=== PATIENT | female | born 1950 | race Caucasian/White ===

== ENCOUNTER → 2016-08-25 | Outpatient (CLI) | payer MEDICARE ==
[~2016-08-25] MED LIST: AFLEXA340 MG; ALPHA LIPOIC300 MG PO; AMARYL2 MG PO; ASPIRIN CHILDRE81 MG PO; ASPIRIN81 M1 PO; ATIVAN0.5 MG PO; ATOXIMETIN-B1 CAP PO; AUGMENTIN 875875 MG PO; CALCIUM & MAGNE1 CAP PO; CALCIUM1 CAP; CHOLESTEROL MA600 MG PO; COREG12.5 MG PO; COREG25 MG PO; HYDROCODONE BIT1 T11 PO; LEVOTHYROXIN0.125 MG PO; LOSARTAN POTASS1 TA2 PO; METFORMIN500 MG PO; NORCO 5-325 TA1 EACH PO; NORVASC10 MG PO; OMEGA-3 FISH1200 M1 PO; OMEGA-3 FISH1200 MG PO; PLAVIX75 MG PO; SPIRIVA18 MCG PO; SYMBICORT1 AE1 INH; [UNRECOGNIZED DRUG - OTHER]
[2016-08-25 14:46] LABS: ALBUMIN 3.7 gm/dl (3.1-4.5); ALKALINE PHOSPHATASE 105 U/L (45-117); BILIRUBIN, DIRECT < 0.1 mg/dL (0.0-0.2); BILIRUBIN, TOTAL 0.4 mg/dl (0.2-1.0); BUN 34 mg/dl (7-24); CARBON DIOXIDE 26 mmol/L (21-32); CHLORIDE 106 mmol/L (98-107); EST GLOM FILT AFRICAN AMERICAN 34 ml/min; GLUCOSE 156 mg/dL (65-99); POTASSIUM 4.1 mmol/L (3.5-5.1); SGOT/AST 17 IU/L (3-35); SGPT/ALT 21 U/L (12-78); SODIUM 141 mmol/L (136-145); TOTAL PROTEIN 7.3 gm/dL (6.4-8.2)
[2016-08-25 15:23] LABS: BASO # 0.1 10*3/uL (0.0-0.1); EOS # 0.4 10*3/uL (0.0-0.4); HEMATOCRIT 41.7 % (37.0-47.0); HEMOGLOBIN 13.4 g/dl (12.0-16.0); LYMPH # 1.2 10*3/uL (1.3-4.4); LYMPH % 22.5 % (27.0-41.0); MEAN CELL VOLUME 94.3 fl (81.0-99.0); MEAN CORPUSCULAR HGB 30.3 pg (27.0-31.0); MEAN CORPUSCULAR HGB CONC 32.1 g/dl (33.0-37.0); MEAN PLATELET VOLUME 11.2 fl (9.6-12.3); MONO # 0.5 10*3/uL (0.1-1.0); MONO % 10.6 % (3.0-9.0); NEUT # 2.9 10*3/uL (2.3-7.9); NEUT % 57.7 % (47.0-73.0); PLATELET COUNT AUTOMATED 206 10*3/uL (130-400); RED BLOOD COUNT 4.42 10*6/uL (4.10-5.10); RED CELL DISTRI WIDTH 12.7 % (0-14.5); WHITE BLOOD COUNT 5.1 10*3/uL (4.8-10.8)
== END | disposition home or self-care (01) ==
LOC: LAB 12:22 → US 12:30
PROVIDERS: Family Medicine
DX: I73.9 Peripheral vascular disease, unspecified (principal); N28.9 Disorder of kidney and ureter, unspecified; J98.4 Other disorders of lung; E11.9 Type 2 diabetes mellitus without complications; I10 Essential (primary) hypertension; E55.9 Vitamin D deficiency, unspecified

== ENCOUNTER → 2016-10-24 | Outpatient (CLI) | payer MEDICARE ==
[2016-10-24 13:44] LABS: BASO # 0.1 10*3/uL (0.0-0.1); BASO % 1.3 % (0.0-1.0); EOS # 0.4 10*3/uL (0.0-0.4); EOS % 6.8 % (1.0-4.0); HEMATOCRIT 43.8 % (37.0-47.0); HEMOGLOBIN 14.5 g/dl (12.0-16.0); LYMPH # 1.3 10*3/uL (1.3-4.4); LYMPH % 21.1 % (27.0-41.0); MEAN CELL VOLUME 93.6 fl (81.0-99.0); MEAN CORPUSCULAR HGB CONC 33.1 g/dl (33.0-37.0); MEAN PLATELET VOLUME 10.8 fl (9.6-12.3); MONO # 0.5 10*3/uL (0.1-1.0); MONO % 8.6 % (3.0-9.0); NEUT # 3.8 10*3/uL (2.3-7.9); NEUT % 61.9 % (47.0-73.0); PLATELET COUNT AUTOMATED 221 10*3/uL (130-400); RED BLOOD COUNT 4.68 10*6/uL (4.10-5.10); RED CELL DISTRI WIDTH 13.3 % (0-14.5); WHITE BLOOD COUNT 6.1 10*3/uL (4.8-10.8)
[2016-10-24 14:06] LABS: MAGNESIUM 2.2 mg/dL (1.5-2.1); PHOSPHOROUS 2.9 mg/dL (2.5-4.9); POTASSIUM 3.9 mmol/L (3.5-5.1)
[2016-10-24 14:18] LABS: HEMOGLOBIN A1c 6.6 % (4.8-5.6)
[2016-10-24 14:42] LABS: PTH INTACT 36.4 pg/mL (14.0-72.0); VITAMIN D, 25-HYDROXY 36.9 ng/mL (30-100)
[2016-10-25 18:24] LABS: URINE TP/CRE RATIO 0.1 (<0.21)
[2016-10-25 18:30] LABS: BILIRUBIN NEGATIVE (NEGATIVE); BLOOD NEGATIVE (NEGATIVE); CLARITY SL CLOUDY (CLEAR); COLOR YELLOW (YELLOW); GLUCOSE NEGATIVE (NEGATIVE); KETONE NEGATIVE (NEGATIVE); LEUKO ESTERASE TRACE (NEGATIVE); NITRITE NEGATIVE (NEGATIVE); PH 5.5 (5.0-9.0); PROTEIN NEGATIVE (NEGATIVE); SPECIFIC GRAVITY 1.015 (1.005-1.030); UROBILINOGEN 0.2 E.U./dl (0.2-1.0)
[2016-10-25 18:33] LABS: BACTERIA 3+; URINE REFLEX COMMENT YES (NO)
[2016-10-27 14:06] LABS: ALBUMIN, URINE RANDOM 25.4 % (.); PROTEIN,TOTAL - URINE RANDOM 20.9 mg/dL (Not Estab.)
[2016-10-27 14:07] LABS: ALPHA-1-GLOBULIN, URINE 0.7 % (.); GAMMA GLOBULIN, URINE 43.7 % (.); M-SPIKE % 17.4 % (Not Observed)
== END | disposition home or self-care (01) ==
LOC: LAB 12:49
PROVIDERS: Internal Medicine Nephrology
DX: E11.22 Type 2 diabetes mellitus with diabetic chronic kidney disease (principal); N18.4 Chronic kidney disease, stage 4 (severe); E83.52 Hypercalcemia; Z79.899 Other long term (current) drug therapy

== ENCOUNTER → 2016-10-31 | Outpatient (CLI) | payer MEDICARE | END | disposition home or self-care (01) | LOC: US 03:26 | DX: N18.4 Chronic kidney disease, stage 4 (severe) (principal) ==

== ENCOUNTER → 2017-03-05 | Outpatient (CLI) | payer MEDICARE ==
[2017-03-05 14:51] LABS: BASO # 0.1 10*3/uL (0.0-0.1); EOS # 0.3 10*3/uL (0.0-0.4); EOS % 5.2 % (1.0-4.0); HEMATOCRIT 44.5 % (37.0-47.0); HEMOGLOBIN 14.5 g/dl (12.0-16.0); LYMPH # 1.2 10*3/uL (1.3-4.4); LYMPH % 23.9 % (27.0-41.0); MEAN CELL VOLUME 94.9 fl (81.0-99.0); MEAN CORPUSCULAR HGB 30.9 pg (27.0-31.0); MEAN CORPUSCULAR HGB CONC 32.6 g/dl (33.0-37.0); MEAN PLATELET VOLUME 10.4 fl (9.6-12.3); MONO # 0.4 10*3/uL (0.1-1.0); MONO % 8.2 % (3.0-9.0); NEUT # 3.1 10*3/uL (2.3-7.9); NEUT % 61.5 % (47.0-73.0); PLATELET COUNT AUTOMATED 204 10*3/uL (130-400); RED BLOOD COUNT 4.69 10*6/uL (4.10-5.10); RED CELL DISTRI WIDTH 12.3 % (0-14.5)
[2017-03-05 15:18] LABS: ALBUMIN 3.6 gm/dl (3.1-4.5); CREATININE 1.67 mg/dL (0.55-1.02); PHOSPHOROUS 2.7 mg/dL (2.5-4.9); POTASSIUM 4.2 mmol/L (3.5-5.1)
[2017-03-05 15:33] LABS: BILIRUBIN NEGATIVE (NEGATIVE); BLOOD NEGATIVE (NEGATIVE); CLARITY SL CLOUDY (CLEAR); COLOR YELLOW (YELLOW); GLUCOSE NEGATIVE (NEGATIVE); KETONE NEGATIVE (NEGATIVE); LEUKO ESTERASE NEGATIVE (NEGATIVE); NITRITE NEGATIVE (NEGATIVE); UROBILINOGEN 0.2 E.U./dl (0.2-1.0)
[2017-03-05 15:40] LABS: BACTERIA 4+
[2017-03-06 05:08] LABS: TOTAL PROTEIN, SERUM 6.8 g/dL (6.0-8.5)
[2017-03-06 15:09] LABS: IMMUNOFIXATION RESULT, SERUM Comment: (.)
[2017-03-06 16:11] LABS: A/G RATIO 1.1 (0.7-1.7); ALBUMIN 3.6 g/dL (2.9-4.4); ALPHA-1-GLOBULIN 0.3 g/dL (0.0-0.4); ALPHA-2-GLOBULIN 0.8 g/dL (0.4-1.0); BETA GLOBULIN 1.1 g/dL (0.7-1.3); GLOBULIN, TOTAL 3.2 g/dL (2.2-3.9); M-SPIKE Comment: g/dL (Not Observed)
== END | disposition home or self-care (01) ==
LOC: LAB 00:10 → US 15:00
PROVIDERS: Internal Medicine Nephrology
DX: E11.22 Type 2 diabetes mellitus with diabetic chronic kidney disease (principal); N18.4 Chronic kidney disease, stage 4 (severe); N28.1 Cyst of kidney, acquired; E83.52 Hypercalcemia; Z79.899 Other long term (current) drug therapy

== ENCOUNTER → 2018-03-25 | Outpatient (CLI) | payer MEDICARE ==
[2018-03-25 11:55] LABS: BASO # 0.1 10*3/uL (0.0-0.1); BASO % 0.9 % (0.0-1.0); EOS # 0.4 10*3/uL (0.0-0.4); EOS % 6.6 % (1.0-4.0); HEMOGLOBIN 14.6 g/dl (12.0-16.0); MEAN CELL VOLUME 97.9 fl (81.0-99.0); MEAN CORPUSCULAR HGB 31.1 pg (27.0-31.0); MEAN CORPUSCULAR HGB CONC 31.7 g/dl (33.0-37.0); MEAN PLATELET VOLUME 10.2 fl (9.6-12.3); MONO # 0.6 10*3/uL (0.1-1.0); MONO % 8.8 % (3.0-9.0); NEUT # 4.3 10*3/uL (2.3-7.9); NEUT % 67.5 % (47.0-73.0); PLATELET COUNT AUTOMATED 214 10*3/uL (130-400); RED CELL DISTRI WIDTH 12.3 % (0-14.5); WHITE BLOOD COUNT 6.4 10*3/uL (4.8-10.8)
[2018-03-26 05:05] LABS: TOTAL PROTEIN, SERUM 7.2 g/dL (6.0-8.5)
[2018-03-26 15:06] LABS: A/G RATIO 0.9 (0.7-1.7); ALBUMIN 3.4 g/dL (2.9-4.4); ALPHA-1-GLOBULIN 0.3 g/dL (0.0-0.4); ALPHA-2-GLOBULIN 0.9 g/dL (0.4-1.0); BETA GLOBULIN 1.3 g/dL (0.7-1.3); FREE KAPPA LIGHT CHAINS 107.6 mg/L (3.3-19.4); FREE LAMBDA LIGHT CHAINS 48.8 mg/L (5.7-26.3); GAMMA GLOBULIN 1.3 g/dL (0.4-1.8); GLOBULIN, TOTAL 3.8 g/dL (2.2-3.9); KAPPA/LAMBDA RATIO 2.2 (0.26-1.65); M-SPIKE 0.4 g/dL (Not Observed)
== END | disposition home or self-care (01) ==
PROVIDERS: Internal Medicine Hematology & Oncology
DX: D47.2 Monoclonal gammopathy (principal)

== ENCOUNTER → 2018-05-11 | Outpatient (CLI) | payer MEDICARE ==
[2018-05-11 11:22] LABS: BILIRUBIN NEGATIVE (NEGATIVE); BLOOD NEGATIVE (NEGATIVE); CLARITY CLOUDY (CLEAR); COLOR YELLOW (YELLOW); GLUCOSE NEGATIVE (NEGATIVE); KETONE NEGATIVE (NEGATIVE); LEUKO ESTERASE 1+ (NEGATIVE); NITRITE NEGATIVE (NEGATIVE); UROBILINOGEN 0.2 E.U./dl (0.2-1.0)
[2018-05-11 11:44] LABS: BASO # 0.1 10*3/uL (0.0-0.1); BASO % 1.1 % (0.0-1.0); EOS # 0.4 10*3/uL (0.0-0.4); EOS % 6.9 % (1.0-4.0); HEMATOCRIT 45.9 % (37.0-47.0); HEMOGLOBIN 14.7 g/dl (12.0-16.0); LYMPH # 1.2 10*3/uL (1.3-4.4); LYMPH % 18.7 % (27.0-41.0); MEAN CELL VOLUME 97.7 fl (81.0-99.0); MEAN CORPUSCULAR HGB 31.3 pg (27.0-31.0); MEAN PLATELET VOLUME 10.6 fl (9.6-12.3); MONO # 0.6 10*3/uL (0.1-1.0); MONO % 9.5 % (3.0-9.0); NEUT # 4.1 10*3/uL (2.3-7.9); NEUT % 63.5 % (47.0-73.0); PLATELET COUNT AUTOMATED 212 10*3/uL (130-400); RED CELL DISTRI WIDTH 12.6 % (0-14.5); WHITE BLOOD COUNT 6.4 10*3/uL (4.8-10.8)
[2018-05-11 11:49] LABS: BACTERIA 4+; WBC TNTC wbc/hpf (0-5)
[2018-05-11 11:58] LABS: ALBUMIN 3.7 gm/dl (3.1-4.5); CREATININE 1.91 mg/dL (0.55-1.02); PHOSPHOROUS 2.7 mg/dL (2.5-4.9); POTASSIUM 4.5 mmol/L (3.5-5.1)
[2018-05-11 12:03] LABS: ALBUMIN 3.7 gm/dl (3.1-4.5); BILIRUBIN, DIRECT 0.1 mg/dL (0.0-0.2); TOTAL PROTEIN 7.8 gm/dL (6.4-8.2)
[2018-05-11 12:11] LABS: THYROID STIM HORMONE (HS) 2.24 uIU/ml (0.358-4.75)
[2018-05-12 16:09] LABS: FREE LAMBDA LIGHT CHAINS 44.8 mg/L (5.7-26.3); KAPPA/LAMBDA RATIO 2.68 (0.26-1.65)
[2018-05-12 17:11] LABS: A/G RATIO 1.1 (0.7-1.7); ALBUMIN 3.6 g/dL (2.9-4.4); ALPHA-1-GLOBULIN 0.3 g/dL (0.0-0.4); ALPHA-2-GLOBULIN 0.9 g/dL (0.4-1.0); BETA GLOBULIN 1.1 g/dL (0.7-1.3); GAMMA GLOBULIN 1.2 g/dL (0.4-1.8); GLOBULIN, TOTAL 3.4 g/dL (2.2-3.9); M-SPIKE 0.4 g/dL (Not Observed)
== END | disposition home or self-care (01) ==
LOC: LAB 10:42
PROVIDERS: Family Medicine; Internal Medicine Nephrology
DX: E11.22 Type 2 diabetes mellitus with diabetic chronic kidney disease (principal); N18.3 Chronic kidney disease, stage 3 (moderate); E83.52 Hypercalcemia; D47.2 Monoclonal gammopathy; Z79.899 Other long term (current) drug therapy

== ENCOUNTER 2019-01-24 15:36 | Inpatient (IN) | payer MEDICARE ==
[~2019-01-24] VITALS: Ht 165.1 cm; Wt 141.1 kg
[2019-01-24] VITALS (11 sets, daily range): BP systolic 130–165; BP diastolic 42–77
[2019-01-24 15:53] LABS: BASO # 0.1 10*3/uL (0.0-0.1); BASO % 1.2 % (0.0-1.0); EOS # 0.4 10*3/uL (0.0-0.4); HEMOGLOBIN 14.1 g/dl (12.0-16.0); LYMPH % 17.6 % (27.0-41.0); MEAN CELL VOLUME 98.3 fl (81.0-99.0); MEAN CORPUSCULAR HGB 30.8 pg (27.0-31.0); MEAN CORPUSCULAR HGB CONC 31.3 g/dl (33.0-37.0); MEAN PLATELET VOLUME 10.3 fl (9.6-12.3); MONO # 0.6 10*3/uL (0.1-1.0); MONO % 9.8 % (3.0-9.0); NEUT # 3.7 10*3/uL (2.3-7.9); NEUT % 64.1 % (47.0-73.0); PLATELET COUNT AUTOMATED 190 10*3/uL (130-400); RED BLOOD COUNT 4.58 10*6/uL (4.10-5.10); RED CELL DISTRI WIDTH 12.3 % (0-14.5); WHITE BLOOD COUNT 5.7 10*3/uL (4.8-10.8)
[2019-01-24 16:05] LABS: ACT PARTIAL THROMBO TIME 26.8 SECONDS (20.0-32.1)
[2019-01-24 16:10] LABS: ALBUMIN 3.5 gm/dl (3.1-4.5); CREATININE 1.81 mg/dL (0.55-1.02); POTASSIUM 4.6 mmol/L (3.5-5.1); TOTAL PROTEIN 7.1 gm/dL (6.4-8.2)
[2019-01-24 16:17] LABS: TROPONIN I 0.016 ng/ml (<0.045)
--- NOTE | 2019-01-24 16:25 | NUR ---
SITTING UP IN BED USING CELL PHONE. PLEASANT, NO DISTRESS NOTED.
--- NOTE | 2019-01-24 17:42 | NUR ---
LYING I BED WATCHING TV, APPEARS RELAXED. NO VOICED COMPLAINTS.
--- NOTE | 2019-01-24 19:18 | NUR ---
CRITICAL LAB TROP 0.097.
--- NOTE | 2019-01-24 19:19 | NUR ---
STALIN RN STATES ROOM IS READY AT THIS TIME BUT NEEDS 15 MINUTES TO GET THE REST OF REPORT.
--- NOTE | 2019-01-24 19:45 | NUR ---
A 68, admitted to , under the services of ANNEMARIE Tran DO with a diagnosis of CHEST PAIN, PNEUMONIA. Chief complaint is CHEST PAIN. Patient arrived via bed from ER. Monitor applied. Initial assessment completed. Vital signs taken and recorded. ANNEMARIE TRAN DO notified of admission to the unit. Orders received. See assessment for past medical history, medications and allergies. Patient and/or family oriented to unit. [address] visitation policy reviewed. Clothing/patient valuable form completed. STALIN CONNELLY
[2019-01-24] MEDS ORDERED: NORVASC5 MG PO (20:06)
--- NOTE | 2019-01-24 22:10 | NUR ---
DR WALLS NOTIFIED OF CRITICAL TROPONIN
--- NOTE | 2019-01-24 22:14 | NUR ---
CALL CALLED TO CARDIOLOGY ANSWERING SERVICE
--- NOTE | 2019-01-24 22:21 | NUR ---
SPOKE WITH DR SHINE REGARDING NEW CONSULT. NO NEW ORDERS
--- NOTE | 2019-01-24 23:53 | NUR ---
HEPARIN BOLUS/DRIP INITIATED PER ORDER.
[2019-01-25] VITALS: BP 134/76
[2019-01-25 06:11] LABS: BASO # 0.1 10*3/uL (0.0-0.1); BASO % 0.7 % (0.0-1.0); EOS # 0.5 10*3/uL (0.0-0.4); EOS % 6.5 % (1.0-4.0); HEMATOCRIT 41.7 % (37.0-47.0); HEMOGLOBIN 13.2 g/dl (12.0-16.0); LYMPH # 1.7 10*3/uL (1.3-4.4); MEAN CORPUSCULAR HGB 30.7 pg (27.0-31.0); MEAN CORPUSCULAR HGB CONC 31.7 g/dl (33.0-37.0); MEAN PLATELET VOLUME 10.4 fl (9.6-12.3); MONO # 0.8 10*3/uL (0.1-1.0); MONO % 11.8 % (3.0-9.0); NEUT # 3.9 10*3/uL (2.3-7.9); NEUT % 56.6 % (47.0-73.0); PLATELET COUNT AUTOMATED 176 10*3/uL (130-400); RED CELL DISTRI WIDTH 12.5 % (0-14.5)
[2019-01-25 06:15] LABS: ALBUMIN 2.9 gm/dl (3.1-4.5); CREATININE 1.68 mg/dL (0.55-1.02); PHOSPHOROUS 3.6 mg/dL (2.5-4.9); POTASSIUM 4.3 mmol/L (3.5-5.1); TOTAL PROTEIN 6.3 gm/dL (6.4-8.2)
[2019-01-25 06:16] LABS: FREE T4 1.28 ng/dl (0.76-1.46)
[2019-01-25 06:20] LABS: THYROID STIM HORMONE (HS) 2.54 uIU/ml (0.358-4.75)
[2019-01-25 06:23] LABS: TROPONIN I 2.28 ng/ml (<0.045)
--- NOTE | 2019-01-25 06:29 | NUR ---
CRITICAL TROPONIN CALLED TO DR WALLS AND CARDIOLOGY ANSWERING SERVICE. AWAITING CALL BACK.
[2019-01-25 06:45] LABS: INTERNATIONAL NORM RATIO 1.1 (2.0-3.5)
[2019-01-25 07:48] LABS: VITAMIN D, 25-HYDROXY 27.5 ng/mL (30-100)
[2019-01-25 08:00] VITALS: BP 130/58
--- NOTE | 2019-01-25 08:04 | NUR ---
HEPARIN DRIP STOPPED PER POLICY, NOTIFIED OF CRITICAL APTT
--- NOTE | 2019-01-25 09:00 | NUR ---
[employer] Worker in to talk to patient. Patient states lives at home with . There are few steps in the home. Physician: jarvis Pharmacy: [facility] health services: none Patient's level of ADLs: MINIMAL ASSIST Patient has working utilities: all working DME: cane Follow-up physician's appointment after d/c: will be made by hospitalist nurse director upon discharge Does patient want to access PORTAL?: no Discharge plan discussed with patient, she lives at home with , she uses a cane for ambulation she states she will return to home when medically stable, case management will follow. FRANCOIS VERMA
--- NOTE | 2019-01-25 09:21 | NUR ---
SPEECH PATHOLOGY Orders for swallowing evaluation received and chart review completed. Patient is currently NPO as she is scheduled for testing. Will complete evaluation at a later time. Thank you for this referral. AMY FORMAN MS [facility]ILIT[facility] MANAGER
[2019-01-25 12:00] VITALS: BP 104/48
--- NOTE | 2019-01-25 13:46 | NUR ---
SPEECH PATHOLOGY Clinical swallowing evaluation completed as per orders to rule out aspiration due to pneumonia. Further history includes CKD, COPD, HTN, NIDDM, NSTEMI and cardiac stent X2. Patient receives a regular diet and thin liquid. She was alert, oriented and cooperative for assessment and denied any chewing or swallowing difficulty. She was assessed during lunchtime meal with a variety of food items as well as thin liquid. Patient displayed oral and pharyngeal swallowing skills WNL with all items consumed. Recommend she remain on present diet. No follow up treatment is warranted. Modified barium swallow is not indicated at this time due to normal swallowing skills. Results and verna. were shared with patient and her nurse and they verbalized understanding. Refer to report in [facility] for further information. Thank you for this referral. AMY FORMAN MS[facility]-HELPDES[facility] ADMINISTRATOR
--- NOTE | 2019-01-25 13:50 | NUR ---
Patient not available for Occupational Therapy evaluation as she is eating lunch. Deborah Flores OTR/l
[2019-01-25] MEDS ORDERED: DOXYCYCLINE100 M3 PO (14:13)
[2019-01-25] MEDS ORDERED: ASPIRIN ADULT L81 M2 PO (14:13)
--- NOTE | 2019-01-25 15:15 | NUR ---
Occupational Therapy offered this date. Patient reports that she is going for a heart cath tomorrow morning at another facility. She also reports she uses a wh walker and a scooter at home. She did not feel she needed any OT at this time after OT explained to her. Discharge OT referral. Deborah Flores OTR/[place]
[2019-01-25 16:00] VITALS: BP 130/60
--- NOTE | 2019-01-25 16:40 | NUR ---
NOTIFIED OF CRITICAL APTT, HEPARIN STOPPED PER POLICY, BRITTANY AT [facility] EMERGENCY DEPARTMENT NOTIFIED THAT HEPERAIN WAS STOPPED AT 1640
--- NOTE | 2019-01-25 17:14 | NUR ---
PT TRANSFERRED TO [facility]
== END 2019-01-25 17:14 | disposition short-term general hospital (02) | DRG 280 ==
LOC: ED 15:36 → 4E 18:04 → EDHOLD 18:04 → 4E 18:32
PROVIDERS: Emergency Medicine; Hospitalist; Student in an Organized Health Care Education/Training Program; ADMIT Family Medicine
DX: I21.4 Non-ST elevation (NSTEMI) myocardial infarction (principal); I26.99 Other pulmonary embolism without acute cor pulmonale; J18.1 Lobar pneumonia, unspecified organism; N18.4 Chronic kidney disease, stage 4 (severe); S26.90XA Unspecified injury of heart, unspecified with or without hemopericardium, initial encounter; N17.9 Acute kidney failure, unspecified; Z68.43 Body mass index [BMI] 50.0-59.9, adult; M94.0 Chondrocostal junction syndrome [Tietze]; J45.909 Unspecified asthma, uncomplicated; I25.10 Atherosclerotic heart disease of native coronary artery without angina pectoris; E03.9 Hypothyroidism, unspecified; I12.9 Hypertensive chronic kidney disease with stage 1 through stage 4 chronic kidney disease, or unspecified chronic kidney disease; E66.01 Morbid (severe) obesity due to excess calories; E83.41 Hypermagnesemia; R79.89 Other specified abnormal findings of blood chemistry; J41.0 Simple chronic bronchitis; E11.65 Type 2 diabetes mellitus with hyperglycemia; E11.22 Type 2 diabetes mellitus with diabetic chronic kidney disease; Z88.8 Allergy status to other drugs, medicaments and biological substances; Z79.899 Other long term (current) drug therapy; Z90.710 Acquired absence of both cervix and uterus; Z95.5 Presence of coronary angioplasty implant and graft; Z83.3 Family history of diabetes mellitus; Z90.49 Acquired absence of other specified parts of digestive tract; Z82.49 Family history of ischemic heart disease and other diseases of the circulatory system; Z80.59 Family history of malignant neoplasm of other urinary tract organ; X58.XXXA Exposure to other specified factors, initial encounter; Y93.89 Activity, other specified; Y92.89 Other specified places as the place of occurrence of the external cause; Y99.8 Other external cause status

== ENCOUNTER → 2019-02-26 | Outpatient (CLI) | payer MEDICARE ==
[~2019-02-26] MED LIST changes: +ASPIRIN ADULT L81 M2 PO; +DOXYCYCLINE100 M3 PO; +NORVASC5 MG PO
[2019-02-26 13:01] LABS: BASO # 0.1 10*3/uL (0.0-0.1); BASO % 1.3 % (0.0-1.0); EOS # 0.4 10*3/uL (0.0-0.4); EOS % 7.7 % (1.0-4.0); HEMATOCRIT 44.3 % (37.0-47.0); HEMOGLOBIN 13.9 g/dl (12.0-16.0); LYMPH % 21.2 % (27.0-41.0); MEAN CORPUSCULAR HGB 30.8 pg (27.0-31.0); MEAN CORPUSCULAR HGB CONC 31.4 g/dl (33.0-37.0); MEAN PLATELET VOLUME 11.1 fl (9.6-12.3); MONO # 0.5 10*3/uL (0.1-1.0); MONO % 9.6 % (3.0-9.0); NEUT # 2.8 10*3/uL (2.3-7.9); PLATELET COUNT AUTOMATED 176 10*3/uL (130-400); RED BLOOD COUNT 4.52 10*6/uL (4.10-5.10); RED CELL DISTRI WIDTH 12.9 % (0-14.5); WHITE BLOOD COUNT 4.7 10*3/uL (4.8-10.8)
[2019-02-26 13:40] LABS: ALBUMIN 3.5 gm/dl (3.1-4.5); BILIRUBIN, DIRECT 0.1 mg/dL (0.0-0.2); POTASSIUM 4.1 mmol/L (3.5-5.1); TOTAL PROTEIN 7.3 gm/dL (6.4-8.2)
[2019-02-26 13:47] LABS: THYROID STIM HORMONE (HS) 2.14 uIU/ml (0.358-4.75)
== END | disposition home or self-care (01) ==
LOC: LAB 11:45
PROVIDERS: Family Medicine
DX: E03.9 Hypothyroidism, unspecified (principal); E11.9 Type 2 diabetes mellitus without complications; I10 Essential (primary) hypertension

== ENCOUNTER → 2019-11-10 | Outpatient (CLI) | payer MEDICARE | END | disposition home or self-care (01) | LOC: MAMMO 13:07 | DX: N63.25 Unspecified lump in the left breast, overlapping quadrants (principal) ==

== ENCOUNTER → 2019-11-24 | Day surgery (SDC) | payer MEDICARE | END | disposition home or self-care (01) | LOC: SDC 11-17 11:00 → RAD 11-17 11:00 → US 11-17 11:00 → MAMMO 11-17 12:00 → SDC 03:27 | PROVIDERS: ATTEND Surgery | DX: N63.22 Unspecified lump in the left breast, upper inner quadrant (principal); Z88.8 Allergy status to other drugs, medicaments and biological substances ==

== ENCOUNTER 2020-04-11 22:30 | Inpatient (IN) | payer MEDICARE ==
[~2020-04-11] VITALS: Ht 165.1 cm; Wt 139.5 kg
[2020-04-11 22:35] VITALS: BP 156/70
[2020-04-11 23:04] LABS: BASO % 0.6 % (0.0-1.0); EOS # 0.2 10*3/uL (0.0-0.4); EOS % 3.9 % (1.0-4.0); HEMATOCRIT 43.2 % (37.0-47.0); LYMPH # 0.6 10*3/uL (1.3-4.4); LYMPH % 11.6 % (27.0-41.0); MEAN CELL VOLUME 95.2 fl (81.0-99.0); MEAN CORPUSCULAR HGB 29.5 pg (27.0-31.0); MEAN PLATELET VOLUME 10.1 fl (9.6-12.3); MONO # 0.7 10*3/uL (0.1-1.0); MONO % 12.2 % (3.0-9.0); NEUT # 3.8 10*3/uL (2.3-7.9); NEUT % 71.3 % (47.0-73.0); PLATELET COUNT AUTOMATED 208 10*3/uL (130-400); RED BLOOD COUNT 4.54 10*6/uL (4.10-5.10); RED CELL DISTRI WIDTH 13.3 % (0-14.5); WHITE BLOOD COUNT 5.3 10*3/uL (4.8-10.8)
[2020-04-11] MEDS ORDERED: CLOPIDOGREL75 MG PO (23:20)
[2020-04-11 23:21] LABS: ALBUMIN 3.2 gm/dl (3.1-4.5); CREATININE 1.67 mg/dL (0.55-1.02); POTASSIUM 3.7 mmol/L (3.5-5.1); TOTAL PROTEIN 7.2 gm/dL (6.4-8.2)
[2020-04-11] MEDS ORDERED: LORAZEPAM0.5 MG PO (23:21)
[2020-04-11] MEDS ORDERED: BIOTIN1 M1 PO (23:22)
[2020-04-11] MEDS ORDERED: LUTEIN20 M2 PO (23:23)
[2020-04-11] MEDS ORDERED: VITAMIN D325 MCG PO (23:23)
[2020-04-11] MEDS ORDERED: SYMB160 INH (23:23)
[2020-04-12] VITALS (7 sets, daily range): BP systolic 129–157; BP diastolic 43–68
[2020-04-12] LABS: ABG BASE EXCESS -0.9 mmol/L (-2.0-2.0); ARTERIAL BLOOD GAS PH 7.357 (7.35-7.45)
[2020-04-12 05:40] LABS: INTERNATIONAL NORM RATIO 1.1 (2.0-3.5)
[2020-04-12 05:52] LABS: ALBUMIN 2.9 gm/dl (3.1-4.5); CREATININE 1.52 mg/dL (0.55-1.02); POTASSIUM 3.5 mmol/L (3.5-5.1); TOTAL PROTEIN 6.5 gm/dL (6.4-8.2)
[2020-04-12 05:59] LABS: THYROID STIM HORMONE (HS) 2.37 uIU/ml (0.358-4.75)
[2020-04-12 06:09] LABS: BASO % 0.2 % (0.0-1.0); EOS # 0.2 10*3/uL (0.0-0.4); HEMATOCRIT 41.8 % (37.0-47.0); LYMPH # 0.7 10*3/uL (1.3-4.4); LYMPH % 17.7 % (27.0-41.0); MEAN CORPUSCULAR HGB 29.5 pg (27.0-31.0); MEAN CORPUSCULAR HGB CONC 31.1 g/dl (33.0-37.0); MEAN PLATELET VOLUME 10.5 fl (9.6-12.3); MONO # 0.5 10*3/uL (0.1-1.0); MONO % 12.7 % (3.0-9.0); NEUT # 2.7 10*3/uL (2.3-7.9); NEUT % 63.7 % (47.0-73.0); PLATELET COUNT AUTOMATED 199 10*3/uL (130-400); RED CELL DISTRI WIDTH 13.3 % (0-14.5); WHITE BLOOD COUNT 4.2 10*3/uL (4.8-10.8)
[2020-04-12 14:16] LABS: FERRITIN 66.9 ng/mL (10.0-291.0); VITAMIN D, 25-HYDROXY 38.7 ng/mL (30-100)
[2020-04-13] VITALS: BP 149/53
[2020-04-13 06:27] LABS: BASO % 0.3 % (0.0-1.0); HEMATOCRIT 41.9 % (37.0-47.0); LYMPH # 0.3 10*3/uL (1.3-4.4); LYMPH % 11.7 % (27.0-41.0); MEAN CELL VOLUME 96.3 fl (81.0-99.0); MEAN CORPUSCULAR HGB 29.7 pg (27.0-31.0); MEAN CORPUSCULAR HGB CONC 30.8 g/dl (33.0-37.0); MEAN PLATELET VOLUME 10.3 fl (9.6-12.3); MONO # 0.4 10*3/uL (0.1-1.0); MONO % 12.7 % (3.0-9.0); NEUT # 2.2 10*3/uL (2.3-7.9); NEUT % 74.6 % (47.0-73.0); PLATELET COUNT AUTOMATED 248 10*3/uL (130-400); RED BLOOD COUNT 4.35 10*6/uL (4.10-5.10); WHITE BLOOD COUNT 2.9 10*3/uL (4.8-10.8)
[2020-04-13 06:36] LABS: CREATININE 1.63 mg/dL (0.55-1.02); POTASSIUM 4.3 mmol/L (3.5-5.1); TOTAL PROTEIN 6.6 gm/dL (6.4-8.2)
[2020-04-13 08:00] VITALS: BP 141/56
[2020-04-13 12:00] VITALS: BP 140/58
[2020-04-13 16:00] VITALS: BP 142/52
[2020-04-13 20:00] VITALS: BP 147/55
[2020-04-14] VITALS: BP 156/49
[2020-04-14 06:53] LABS: BASO % 0.1 % (0.0-1.0); HEMATOCRIT 43.4 % (37.0-47.0); LYMPH # 0.6 10*3/uL (1.3-4.4); MEAN CELL VOLUME 96.9 fl (81.0-99.0); MEAN CORPUSCULAR HGB 30.1 pg (27.0-31.0); MEAN CORPUSCULAR HGB CONC 31.1 g/dl (33.0-37.0); MONO # 0.7 10*3/uL (0.1-1.0); MONO % 8.2 % (3.0-9.0); NEUT # 7.2 10*3/uL (2.3-7.9); NEUT % 83.6 % (47.0-73.0); PLATELET COUNT AUTOMATED 268 10*3/uL (130-400); RED BLOOD COUNT 4.48 10*6/uL (4.10-5.10); RED CELL DISTRI WIDTH 12.9 % (0-14.5); WHITE BLOOD COUNT 8.6 10*3/uL (4.8-10.8)
[2020-04-14 07:09] LABS: ALBUMIN 3.1 gm/dl (3.1-4.5); CREATININE 1.66 mg/dL (0.55-1.02); POTASSIUM 4.7 mmol/L (3.5-5.1)
[2020-04-14 08:00] VITALS: BP 141/46
[2020-04-14 12:00] VITALS: BP 157/67
[2020-04-14 16:00] VITALS: BP 142/87
[2020-04-14 20:00] VITALS: BP 129/46
[2020-04-15] VITALS: BP 121/43
[2020-04-15 07:21] LABS: BASO % 0.1 % (0.0-1.0); HEMATOCRIT 40.4 % (37.0-47.0); LYMPH # 0.6 10*3/uL (1.3-4.4); MEAN CELL VOLUME 95.1 fl (81.0-99.0); MEAN CORPUSCULAR HGB 29.6 pg (27.0-31.0); MEAN CORPUSCULAR HGB CONC 31.2 g/dl (33.0-37.0); MEAN PLATELET VOLUME 10.2 fl (9.6-12.3); MONO # 0.8 10*3/uL (0.1-1.0); MONO % 9.7 % (3.0-9.0); NEUT # 6.5 10*3/uL (2.3-7.9); NEUT % 82.3 % (47.0-73.0); PLATELET COUNT AUTOMATED 252 10*3/uL (130-400); RED BLOOD COUNT 4.25 10*6/uL (4.10-5.10); WHITE BLOOD COUNT 7.9 10*3/uL (4.8-10.8)
[2020-04-15 07:54] LABS: ALBUMIN 2.9 gm/dl (3.1-4.5); CREATININE 1.62 mg/dL (0.55-1.02); POTASSIUM 4.5 mmol/L (3.5-5.1); TOTAL PROTEIN 6.8 gm/dL (6.4-8.2)
[2020-04-15 08:00] VITALS: BP 153/66
[2020-04-15 12:00] VITALS: BP 156/50
[2020-04-15 16:00] VITALS: BP 144/55
[2020-04-15 20:00] VITALS: BP 146/54
[2020-04-16] VITALS: BP 126/49
[2020-04-16 05:59] LABS: ALBUMIN 2.7 gm/dl (3.1-4.5); CREATININE 1.72 mg/dL (0.55-1.02); POTASSIUM 5.4 mmol/L (3.5-5.1); TOTAL PROTEIN 6.5 gm/dL (6.4-8.2)
[2020-04-16 06:01] LABS: BASO % 0.1 % (0.0-1.0); EOS % 0.1 % (1.0-4.0); LYMPH # 0.5 10*3/uL (1.3-4.4); MEAN CELL VOLUME 93.9 fl (81.0-99.0); MEAN CORPUSCULAR HGB 30.3 pg (27.0-31.0); MEAN CORPUSCULAR HGB CONC 32.3 g/dl (33.0-37.0); MEAN PLATELET VOLUME 10.4 fl (9.6-12.3); MONO # 0.7 10*3/uL (0.1-1.0); NEUT # 6.9 10*3/uL (2.3-7.9); NEUT % 84.3 % (47.0-73.0); PLATELET COUNT AUTOMATED 226 10*3/uL (130-400); RED BLOOD COUNT 4.26 10*6/uL (4.10-5.10); RED CELL DISTRI WIDTH 12.9 % (0-14.5); WHITE BLOOD COUNT 8.2 10*3/uL (4.8-10.8)
[2020-04-16 08:00] VITALS: BP 142/83
[2020-04-16 12:00] VITALS: BP 141/52
[2020-04-16] MEDS ORDERED: ZITHROMAX250 MG PO ×2 (15:03)
[2020-04-16] MEDS ORDERED: DECADRON6 M1 PO ×2 (15:03)
[2020-04-16 16:00] VITALS: BP 154/71
== END 2020-04-16 17:30 | disposition home health service (06) | DRG 177 ==
LOC: ED 22:30 → EDHOLD 04-12 00:19 → 4E 04-12 00:19
PROVIDERS: Internal Medicine; Student in an Organized Health Care Education/Training Program; ADMIT Internal Medicine; ATTEND Internal Medicine
PROC: 5A09357 Assistance with Respiratory Ventilation, Less than 24 Consecutive Hours, Continuous Positive Airway Pressure (ICD-10-PCS; principal; 2020-04-14)
DX: U07.1 COVID-19 (principal); J96.01 Acute respiratory failure with hypoxia; E44.1 Mild protein-calorie malnutrition; N18.4 Chronic kidney disease, stage 4 (severe); Z68.43 Body mass index [BMI] 50.0-59.9, adult; I12.0 Hypertensive chronic kidney disease with stage 5 chronic kidney disease or end stage renal disease; E11.22 Type 2 diabetes mellitus with diabetic chronic kidney disease; E66.01 Morbid (severe) obesity due to excess calories; J44.9 Chronic obstructive pulmonary disease, unspecified; E11.65 Type 2 diabetes mellitus with hyperglycemia; E87.8 Other disorders of electrolyte and fluid balance, not elsewhere classified; E03.9 Hypothyroidism, unspecified; Z86.711 Personal history of pulmonary embolism; Z90.49 Acquired absence of other specified parts of digestive tract; Z90.710 Acquired absence of both cervix and uterus; Z95.5 Presence of coronary angioplasty implant and graft; Z82.49 Family history of ischemic heart disease and other diseases of the circulatory system; Z88.1 Allergy status to other antibiotic agents; Z88.8 Allergy status to other drugs, medicaments and biological substances; Z79.82 Long term (current) use of aspirin; Z79.899 Other long term (current) drug therapy

== ENCOUNTER 2020-05-28 16:01 | Inpatient (IN) | payer MEDICARE ==
[~2020-05-28] VITALS: Ht 165.1 cm; Wt 139.0 kg
[~2020-05-28 16:01] MED LIST changes: +BIOTIN1 M1 PO; +CLOPIDOGREL75 MG PO; +DECADRON6 M1 PO; +LORAZEPAM0.5 MG PO; +LUTEIN20 M2 PO; +SYMB160 INH; +VITAMIN D325 MCG PO; +ZITHROMAX250 MG PO
[2020-05-28 16:12] VITALS: BP 140/52
[2020-05-28 16:48] LABS: BASO # 0.1 10*3/uL (0.0-0.1); EOS % 0.7 % (1.0-4.0); HEMATOCRIT 39.2 % (37.0-47.0); LYMPH # 0.8 10*3/uL (1.3-4.4); LYMPH % 13.5 % (27.0-41.0); MEAN CORPUSCULAR HGB 30.9 pg (27.0-31.0); MEAN CORPUSCULAR HGB CONC 30.9 g/dl (33.0-37.0); MEAN PLATELET VOLUME 10.3 fl (9.6-12.3); MONO # 0.5 10*3/uL (0.1-1.0); MONO % 8.2 % (3.0-9.0); NEUT # 4.6 10*3/uL (2.3-7.9); NEUT % 76.1 % (47.0-73.0); PLATELET COUNT AUTOMATED 198 10*3/uL (130-400); RED BLOOD COUNT 3.92 10*6/uL (4.10-5.10); RED CELL DISTRI WIDTH 13.3 % (0-14.5)
[2020-05-28 17:09] LABS: ALBUMIN 3.3 gm/dl (3.1-4.5); ALKALINE PHOSPHATASE 86 U/L (45-117); BUN 23 mg/dl (7-24); CHLORIDE 107 mmol/L (98-107); CREATININE 1.46 mg/dL (0.55-1.02); POTASSIUM 4.2 mmol/L (3.5-5.1); SGOT/AST 12 IU/L (3-35); SGPT/ALT 19 U/L (12-78); SODIUM 140 mmol/L (136-145); TOTAL PROTEIN 6.9 gm/dL (6.4-8.2)
[2020-05-28 17:11] LABS: TROPONIN I < 0.015 ng/ml (<0.045)
[2020-05-28 17:14] VITALS: BP 142/50
[2020-05-28 17:48] LABS: ACT PARTIAL THROMBO TIME 26.4 SECONDS (20.0-32.1)
[2020-05-28 19:50] VITALS: BP 140/58
[2020-05-28 20:00] VITALS: BP 140/58
[2020-05-29] VITALS: BP 128/48
[2020-05-29 05:57] LABS: CREATININE 1.43 mg/dL (0.55-1.02)
[2020-05-29 06:05] LABS: THYROID STIM HORMONE (HS) 5.77 uIU/ml (0.358-4.75)
[2020-05-29 06:23] LABS: BASO % 0.8 % (0.0-1.0); EOS # 0.1 10*3/uL (0.0-0.4); HEMATOCRIT 36.4 % (37.0-47.0); LYMPH % 19.8 % (27.0-41.0); MEAN CELL VOLUME 97.8 fl (81.0-99.0); MEAN CORPUSCULAR HGB 30.6 pg (27.0-31.0); MEAN CORPUSCULAR HGB CONC 31.3 g/dl (33.0-37.0); MEAN PLATELET VOLUME 10.8 fl (9.6-12.3); MONO # 0.7 10*3/uL (0.1-1.0); MONO % 14.6 % (3.0-9.0); NEUT # 3.1 10*3/uL (2.3-7.9); NEUT % 62.6 % (47.0-73.0); PLATELET COUNT AUTOMATED 192 10*3/uL (130-400); RED BLOOD COUNT 3.72 10*6/uL (4.10-5.10); RED CELL DISTRI WIDTH 13.4 % (0-14.5)
[2020-05-29 08:00] VITALS: BP 141/44
[2020-05-29 12:00] VITALS: BP 130/40
[2020-05-29 16:00] VITALS: BP 122/48
[2020-05-29 20:00] VITALS: BP 132/49
[2020-05-30] VITALS: BP 151/57
[2020-05-30 06:26] LABS: BASO # 0.1 10*3/uL (0.0-0.1); BASO % 0.8 % (0.0-1.0); EOS # 0.4 10*3/uL (0.0-0.4); EOS % 5.9 % (1.0-4.0); HEMATOCRIT 37.8 % (37.0-47.0); LYMPH # 1.1 10*3/uL (1.3-4.4); MEAN CELL VOLUME 100.5 fl (81.0-99.0); MEAN CORPUSCULAR HGB 30.6 pg (27.0-31.0); MEAN CORPUSCULAR HGB CONC 30.4 g/dl (33.0-37.0); MEAN PLATELET VOLUME 10.3 fl (9.6-12.3); MONO # 0.9 10*3/uL (0.1-1.0); MONO % 15.4 % (3.0-9.0); NEUT # 3.4 10*3/uL (2.3-7.9); NEUT % 58.6 % (47.0-73.0); PLATELET COUNT AUTOMATED 178 10*3/uL (130-400); RED BLOOD COUNT 3.76 10*6/uL (4.10-5.10); RED CELL DISTRI WIDTH 13.5 % (0-14.5); WHITE BLOOD COUNT 5.9 10*3/uL (4.8-10.8)
[2020-05-30 06:52] LABS: CREATININE 1.45 mg/dL (0.55-1.02)
[2020-05-30 07:01] LABS: POTASSIUM 5.1 mmol/L (3.5-5.1)
[2020-05-30 08:00] VITALS: BP 133/48
[2020-05-30 12:00] VITALS: BP 116/42
[2020-05-30] MEDS ORDERED: DOXYCYCLINE MO100 M1 PO (15:29)
[2020-05-30 16:00] VITALS: BP 110/50
== END 2020-05-30 16:53 | disposition home health service (06) | DRG 178 ==
LOC: ED 16:01 → EDHOLD 17:23 → 5E 17:23
PROVIDERS: Emergency Medicine; Family Medicine; Internal Medicine; ADMIT Family Medicine; ATTEND Family Medicine
DX: J15.6 Pneumonia due to other Gram-negative bacteria (principal); E44.0 Moderate protein-calorie malnutrition; N18.4 Chronic kidney disease, stage 4 (severe); J44.0 Chronic obstructive pulmonary disease with (acute) lower respiratory infection; Z68.43 Body mass index [BMI] 50.0-59.9, adult; E83.41 Hypermagnesemia; I25.10 Atherosclerotic heart disease of native coronary artery without angina pectoris; E78.5 Hyperlipidemia, unspecified; E11.65 Type 2 diabetes mellitus with hyperglycemia; E11.22 Type 2 diabetes mellitus with diabetic chronic kidney disease; I25.2 Old myocardial infarction; E03.9 Hypothyroidism, unspecified; I12.9 Hypertensive chronic kidney disease with stage 1 through stage 4 chronic kidney disease, or unspecified chronic kidney disease; E66.01 Morbid (severe) obesity due to excess calories; Z86.16 Personal history of COVID-19; Z88.1 Allergy status to other antibiotic agents; Z88.8 Allergy status to other drugs, medicaments and biological substances; Z90.49 Acquired absence of other specified parts of digestive tract; Z90.710 Acquired absence of both cervix and uterus; Z82.49 Family history of ischemic heart disease and other diseases of the circulatory system; Z83.3 Family history of diabetes mellitus; Z80.8 Family history of malignant neoplasm of other organs or systems

== ENCOUNTER → 2020-12-17 | Outpatient (CLI) | payer MEDICARE ==
[~2020-12-17] MED LIST changes: +DOXYCYCLINE MO100 M1 PO
[2020-12-17 10:34] LABS: BASO # 0.1 10*3/uL (0.0-0.1); BASO % 0.8 % (0.0-1.0); EOS # 0.2 10*3/uL (0.0-0.4); EOS % 2.5 % (1.0-4.0); HEMATOCRIT 39.2 % (37.0-47.0); LYMPH # 1.4 10*3/uL (1.3-4.4); LYMPH % 16.5 % (27.0-41.0); MEAN CORPUSCULAR HGB 30.2 pg (27.0-31.0); MEAN CORPUSCULAR HGB CONC 31.1 g/dl (33.0-37.0); MEAN PLATELET VOLUME 10.5 fl (9.6-12.3); MONO % 11.3 % (3.0-9.0); NEUT # 5.7 10*3/uL (2.3-7.9); NEUT % 68.4 % (47.0-73.0); PLATELET COUNT AUTOMATED 238 10*3/uL (130-400); RED BLOOD COUNT 4.04 10*6/uL (4.10-5.10); RED CELL DISTRI WIDTH 13.3 % (0-14.5); WHITE BLOOD COUNT 8.4 10*3/uL (4.8-10.8)
[2020-12-17 10:58] LABS: ALBUMIN 3.3 gm/dl (3.1-4.5); CREATININE 1.5 mg/dL (0.55-1.02); POTASSIUM 4.2 mmol/L (3.5-5.1); THYROXINE (T4) TOTAL 12.2 ug/dl (4.8-13.9); TOTAL PROTEIN 7.5 gm/dL (6.4-8.2)
[2020-12-17 11:02] LABS: THYROID STIM HORMONE (HS) 3.37 uIU/ml (0.358-4.75)
== END | disposition home or self-care (01) ==
LOC: LAB 09:54
PROVIDERS: ATTEND Family Medicine
DX: I10 Essential (primary) hypertension (principal); E11.9 Type 2 diabetes mellitus without complications; E03.9 Hypothyroidism, unspecified; E55.9 Vitamin D deficiency, unspecified

== ENCOUNTER 2021-06-28 11:20 | Emergency (ER) | payer MEDICARE ==
[~2021-06-28] VITALS: Ht 165.1 cm; Wt 127.0 kg
[2021-06-28 11:23] VITALS: BP 145/53
[2021-06-28] MEDS ORDERED: MIRALAX POWDER17 G1 PO (12:20)
== END 2021-06-28 12:24 | disposition home or self-care (01) ==
LOC: ED 11:20
DX: K59.00 Constipation, unspecified (principal); Z88.1 Allergy status to other antibiotic agents; Z88.8 Allergy status to other drugs, medicaments and biological substances; Z79.899 Other long term (current) drug therapy; Z90.710 Acquired absence of both cervix and uterus; Z98.890 Other specified postprocedural states; Z90.49 Acquired absence of other specified parts of digestive tract

== ENCOUNTER → 2021-10-02 | Outpatient (CLI) | payer MEDICARE ==
[~2021-10-02] MED LIST changes: +MIRALAX POWDER17 G1 PO
[2021-10-02 10:20] LABS: BASO # 0.1 10*3/uL (0.0-0.1); EOS # 0.3 10*3/uL (0.0-0.4); EOS % 5.1 % (1.0-4.0); HEMATOCRIT 42.5 % (37.0-47.0); LYMPH % 15.5 % (27.0-41.0); MEAN CELL VOLUME 93.6 fl (81.0-99.0); MEAN CORPUSCULAR HGB 29.1 pg (27.0-31.0); MEAN CORPUSCULAR HGB CONC 31.1 g/dl (33.0-37.0); MEAN PLATELET VOLUME 10.6 fl (9.6-12.3); MONO # 0.5 10*3/uL (0.1-1.0); MONO % 8.6 % (3.0-9.0); NEUT # 4.4 10*3/uL (2.3-7.9); NEUT % 69.6 % (47.0-73.0); PLATELET COUNT AUTOMATED 222 10*3/uL (130-400); RED BLOOD COUNT 4.54 10*6/uL (4.10-5.10); RED CELL DISTRI WIDTH 12.7 % (0-14.5); WHITE BLOOD COUNT 6.3 10*3/uL (4.8-10.8)
[2021-10-02 10:35] LABS: CREATININE 1.45 mg/dL (0.55-1.02); POTASSIUM 4.2 mmol/L (3.5-5.1); TOTAL PROTEIN 7.6 gm/dL (6.4-8.2)
[2021-10-03 05:06] LABS: CA 27.29 30.4 U/mL (0.0-38.6)
[2021-10-04 09:07] LABS: A/G RATIO 1.1 (0.7-1.7); ALBUMIN 3.6 g/dL (2.9-4.4); ALPHA-1-GLOBULIN 0.3 g/dL (0.0-0.4); ALPHA-2-GLOBULIN 0.9 g/dL (0.4-1.0); BETA GLOBULIN 1.1 g/dL (0.7-1.3); FREE KAPPA LIGHT CHAINS 202.7 mg/L (3.3-19.4); FREE LAMBDA LIGHT CHAINS 31.8 mg/L (5.7-26.3); GAMMA GLOBULIN 1.3 g/dL (0.4-1.8); GLOBULIN, TOTAL 3.6 g/dL (2.2-3.9); IMMUNOGLOBULIN G, QNT 788 mg/dL (586-1602); IMMUNOGLOBULIN M, QNT 611 mg/dL (26-217); KAPPA/LAMBDA RATIO 6.37 (0.26-1.65); M-SPIKE 0.6 g/dL (Not Observed); TOTAL PROTEIN, SERUM 7.2 g/dL (6.0-8.5)
== END | disposition home or self-care (01) ==
LOC: LAB 08:54 → MAMMO 09:00
PROVIDERS: ATTEND Internal Medicine Hematology & Oncology
DX: C50.912 Malignant neoplasm of unspecified site of left female breast (principal); R92.1 Mammographic calcification found on diagnostic imaging of breast; U07.1 COVID-19; D47.2 Monoclonal gammopathy; R91.8 Other nonspecific abnormal finding of lung field

== ENCOUNTER 2022-01-30 11:32 | Emergency (ER) | payer MEDICARE ==
[~2022-01-30] VITALS: Ht 165.1 cm; Wt 117.9 kg
[2022-01-30 11:39] VITALS: BP 146/47
[2022-01-30 12:57] LABS: BASO # 0.1 10*3/uL (0.0-0.1); BASO % 1.2 % (0.0-1.0); EOS # 0.4 10*3/uL (0.0-0.4); EOS % 7.7 % (1.0-4.0); HEMATOCRIT 37.3 % (37.0-47.0); LYMPH # 1.3 10*3/uL (1.3-4.4); LYMPH % 22.3 % (27.0-41.0); MEAN CELL VOLUME 95.6 fl (81.0-99.0); MEAN CORPUSCULAR HGB 30.3 pg (27.0-31.0); MEAN CORPUSCULAR HGB CONC 31.6 g/dl (33.0-37.0); MEAN PLATELET VOLUME 9.7 fl (9.6-12.3); MONO # 0.5 10*3/uL (0.1-1.0); MONO % 8.4 % (3.0-9.0); NEUT # 3.4 10*3/uL (2.3-7.9); NEUT % 60.2 % (47.0-73.0); PLATELET COUNT AUTOMATED 223 10*3/uL (130-400); WHITE BLOOD COUNT 5.6 10*3/uL (4.8-10.8)
[2022-01-30 13:05] LABS: CREATININE 1.52 mg/dL (0.55-1.02); POTASSIUM 4.3 mmol/L (3.5-5.1)
[2022-01-30] MEDS ORDERED: VIBRAMYCIN HYC100 MG PO (15:57)
[2022-02-17] MEDS ORDERED: ANASTROZOLE1 M1 PO (09:32)
[2022-02-19] MEDS ORDERED: PERCOCET 5-3251 EACH PO ×3 (08:31→09:28)
[2022-02-19] MEDS ORDERED: VIBRAMYCIN HYC100 MG PO (08:31)
== END 2022-01-30 17:02 | disposition home or self-care (01) ==
LOC: ED 11:32
PROVIDERS: Internal Medicine; Student in an Organized Health Care Education/Training Program
DX: S81.802A Unspecified open wound, left lower leg, initial encounter (principal); S80.12XA Contusion of left lower leg, initial encounter; Z90.49 Acquired absence of other specified parts of digestive tract; Z95.5 Presence of coronary angioplasty implant and graft; Z79.899 Other long term (current) drug therapy; Z79.82 Long term (current) use of aspirin; Z88.1 Allergy status to other antibiotic agents; W22.8XXA Striking against or struck by other objects, initial encounter; Y93.89 Activity, other specified; Y92.89 Other specified places as the place of occurrence of the external cause; Y99.9 Unspecified external cause status

== ENCOUNTER → 2022-02-19 | Day surgery (SDC) | payer MEDICARE ==
[~2022-02-19] VITALS: Ht 165.1 cm; Wt 117.9 kg
[~2022-02-19] MED LIST changes: +ANASTROZOLE1 M1 PO; +PERCOCET 5-3251 EACH PO; +VIBRAMYCIN HYC100 MG PO
[2022-02-19 06:40] VITALS: BP 139/40
[2022-02-19 08:26] VITALS: BP 101/55
[2022-02-19 08:40] VITALS: BP 90/40
[2022-02-19 08:55] VITALS: BP 140/44
[2022-02-20 11:04] LABS: ACID FAST SPEC PROCESSING Tissue Grinding (.)
== END | disposition home or self-care (01) ==
LOC: SDC 02-14 11:45
PROVIDERS: ATTEND Podiatrist Foot & Ankle Surgery
DX: S81.802A Unspecified open wound, left lower leg, initial encounter (principal); I25.2 Old myocardial infarction; I10 Essential (primary) hypertension; E78.00 Pure hypercholesterolemia, unspecified; E11.9 Type 2 diabetes mellitus without complications; Z85.828 Personal history of other malignant neoplasm of skin; Z85.3 Personal history of malignant neoplasm of breast; X58.XXXA Exposure to other specified factors, initial encounter; Y93.89 Activity, other specified; Y92.89 Other specified places as the place of occurrence of the external cause; Y99.8 Other external cause status

== ENCOUNTER → 2022-05-29 | Outpatient (CLI) | payer MEDICARE ==
[2022-05-29 10:17] LABS: BASO # 0.1 10*3/uL (0.0-0.1); BASO % 1.2 % (0.0-1.0); EOS # 0.5 10*3/uL (0.0-0.4); HEMATOCRIT 40.7 % (37.0-47.0); LYMPH # 1.3 10*3/uL (1.3-4.4); LYMPH % 19.5 % (27.0-41.0); MEAN CELL VOLUME 97.4 fl (81.0-99.0); MEAN CORPUSCULAR HGB 30.1 pg (27.0-31.0); MEAN PLATELET VOLUME 10.3 fl (9.6-12.3); MONO # 0.7 10*3/uL (0.1-1.0); MONO % 9.8 % (3.0-9.0); NEUT # 4.3 10*3/uL (2.3-7.9); NEUT % 62.2 % (47.0-73.0); PLATELET COUNT AUTOMATED 206 10*3/uL (130-400); RED BLOOD COUNT 4.18 10*6/uL (4.10-5.10); RED CELL DISTRI WIDTH 12.6 % (0-14.5); WHITE BLOOD COUNT 6.9 10*3/uL (4.8-10.8)
[2022-05-29 10:36] LABS: POTASSIUM 4.5 mmol/L (3.4-5.1); THYROID STIM HORMONE (HS) 4.636 uIU/ml (0.550-4.780); THYROXINE (T4) TOTAL 10.5 ug/dl (4.5-10.9); TOTAL PROTEIN 6.9 gm/dL (6.0-8.0)
[2022-05-29 10:51] LABS: VITAMIN D, 25-HYDROXY 59.4 ng/mL (30-100)
== END | disposition home or self-care (01) ==
LOC: LAB 10:01
PROVIDERS: ATTEND Family Medicine
DX: E11.9 Type 2 diabetes mellitus without complications (principal); E55.9 Vitamin D deficiency, unspecified; N20.0 Calculus of kidney; Z79.899 Other long term (current) drug therapy

== ENCOUNTER 2022-08-03 10:23 | Emergency (ER) | payer MEDICARE ==
[~2022-08-03] VITALS: Ht 165.1 cm; Wt 120.2 kg
[2022-08-03 10:35] VITALS: BP 173/56
[2022-08-03] MEDS ORDERED: TEMAZEPAM30 MG PO (10:42)
[2022-08-03] MEDS ORDERED: LOSARTAN POTASS50 M1 PO (10:42)
[2022-08-03] MEDS ORDERED: TRAMADOL HCL50 MG PO (10:43)
[2022-08-03] MEDS ORDERED: TOLTERODINE TART2 M2 PO (11:36)
[2022-08-03] MEDS ORDERED: PERCOCET 5-3251 EACH PO (12:21)
== END 2022-08-03 15:30 | disposition home or self-care (01) ==
LOC: ED 10:23
DX: S82.842A Displaced bimalleolar fracture of left lower leg, initial encounter for closed fracture (principal); Z88.1 Allergy status to other antibiotic agents; Z88.8 Allergy status to other drugs, medicaments and biological substances; Z90.710 Acquired absence of both cervix and uterus; Z90.49 Acquired absence of other specified parts of digestive tract; Z79.899 Other long term (current) drug therapy; W18.39XA Other fall on same level, initial encounter; Y93.89 Activity, other specified; Y92.89 Other specified places as the place of occurrence of the external cause; Y99.8 Other external cause status

== ENCOUNTER → 2022-09-05 | Outpatient (CLI) | payer MEDICARE ==
[~2022-09-05] MED LIST changes: +LOSARTAN POTASS50 M1 PO; +TEMAZEPAM30 MG PO; +TOLTERODINE TART2 M2 PO; +TRAMADOL HCL50 MG PO
== END | disposition home or self-care (01) ==
LOC: ORTHO 00:56
PROVIDERS: ATTEND Orthopaedic Surgery
DX: S82.842D Displaced bimalleolar fracture of left lower leg, subsequent encounter for closed fracture with routine healing (principal); X58.XXXD Exposure to other specified factors, subsequent encounter

== ENCOUNTER 2022-09-12 15:12 | Inpatient (IN) | payer MEDICARE ==
[~2022-09-12] VITALS: Ht 165.1 cm; Wt 126.4 kg
[~2022-09-12 15:12] MED LIST changes: +AMARYL1 M1 PO; -AMARYL2 MG PO; -BIOTIN1 M1 PO; +BIOTIN1000 MC1 PO; -LEVOTHYROXIN0.125 MG PO; +LEVOXYL150 MCG PO
[2022-09-12 15:13] VITALS: BP 131/49
[2022-09-12 15:55] LABS: BILIRUBIN Negative (Negative); BLOOD 2+ (Negative); CLARITY Turbid (Clear); COLOR Yellow (Yellow); GLUCOSE Negative (Negative); KETONE Negative (Negative); LEUKO ESTERASE 3+ (Negative); NITRITE Positive (Negative); PH 6.5 (4.5-8.0); UROBILINOGEN 0.2 E.U./dl (0.0-1.0)
[2022-09-12 16:00] VITALS: BP 113/32
[2022-09-12 16:05] LABS: BACTERIA 2+; EPITHELIAL CELLS 0-2; WBC TNTC wbc/hpf (0-5)
[2022-09-12 16:07] LABS: HEMATOCRIT 33.1 % (37.0-47.0); MANUAL DIFF REFLEX YES; MEAN CELL VOLUME 97.6 fl (81.0-99.0); MEAN CORPUSCULAR HGB 30.7 pg (27.0-31.0); MEAN CORPUSCULAR HGB CONC 31.4 g/dl (33.0-37.0); MEAN PLATELET VOLUME 10.4 fl (9.6-12.3); PLATELET COUNT AUTOMATED 235 10*3/uL (130-400); RED BLOOD COUNT 3.39 10*6/uL (4.10-5.10); RED CELL DISTRI WIDTH 12.8 % (0-14.5)
[2022-09-12 16:21] LABS: ARTERIAL BLOOD GAS PH 7.37 (7.35-7.45); ARTERIAL BLOOD GAS PO2 79.4 (80-90)
[2022-09-12 16:26] LABS: ACT PARTIAL THROMBO TIME 26.2 SECONDS (20.0-32.1); INTERNATIONAL NORM RATIO 1.2 (2.0-3.5)
[2022-09-12 16:29] LABS: PLATELET SUFFICIENCY NORMAL (NORMAL); POLYCHROMASIA SLIGHT; TOTAL CELLS COUNTED 100 #CELLS; TOXIC GRANULATION SLIGHT
[2022-09-12 16:30] LABS: BURR CELLS FEW; OVALOCYTES FEW
[2022-09-12 16:32] LABS: POTASSIUM 4.2 mmol/L (3.4-5.1); TOTAL PROTEIN 6.5 gm/dL (6.0-8.0)
[2022-09-12 18:43] VITALS: BP 106/40
[2022-09-12 22:00] VITALS: BP 104/40
[2022-09-13] VITALS: BP 121/42
[2022-09-13 04:00] VITALS: BP 96/59
[2022-09-13 08:00] VITALS: BP 113/32
[2022-09-13 09:05] LABS: HEMATOCRIT 32.4 % (37.0-47.0); MEAN CELL VOLUME 96.4 fl (81.0-99.0); MEAN CORPUSCULAR HGB 30.4 pg (27.0-31.0); MEAN CORPUSCULAR HGB CONC 31.5 g/dl (33.0-37.0); MEAN PLATELET VOLUME 10.3 fl (9.6-12.3); PLATELET COUNT AUTOMATED 230 10*3/uL (130-400); RED BLOOD COUNT 3.36 10*6/uL (4.10-5.10); RED CELL DISTRI WIDTH 12.9 % (0-14.5); WHITE BLOOD COUNT 21.1 10*3/uL (4.8-10.8)
[2022-09-13 09:06] LABS: MANUAL DIFF REFLEX YES
[2022-09-13 09:14] LABS: INTERNATIONAL NORM RATIO 1.2 (2.0-3.5)
[2022-09-13 09:26] LABS: PLATELET SUFFICIENCY NORMAL (NORMAL); POLYCHROMASIA SLIGHT; TOTAL CELLS COUNTED 100 #CELLS
[2022-09-13 09:27] LABS: BURR CELLS FEW; TOXIC GRANULATION SLIGHT
[2022-09-13 10:18] LABS: FREE T4 0.72 ng/dl (0.89-1.76); POTASSIUM 3.6 mmol/L (3.4-5.1); TOTAL PROTEIN 6.3 gm/dL (6.0-8.0)
[2022-09-13 10:18] LABS: VITAMIN D, 25-HYDROXY 33.5 ng/mL (30-100)
[2022-09-13 10:19] LABS: THYROID STIM HORMONE (HS) 24.466 uIU/ml (0.550-4.780)
[2022-09-13] MEDS ORDERED: COREG25 MG PO (10:21)
[2022-09-13] MEDS ORDERED: RENAFOOD PO (10:38)
[2022-09-13 16:00] VITALS: BP 104/38
[2022-09-13 20:08] VITALS: BP 111/34
[2022-09-14] VITALS: BP 92/32
[2022-09-14 04:13] VITALS: BP 96/36
[2022-09-14 06:22] LABS: POTASSIUM 3.7 mmol/L (3.4-5.1); TOTAL PROTEIN 5.7 gm/dL (6.0-8.0)
[2022-09-14 06:24] LABS: BASO % 0.3 % (0.0-1.0); EOS # 0.2 10*3/uL (0.0-0.4); EOS % 1.1 % (1.0-4.0); HEMATOCRIT 28.8 % (37.0-47.0); LYMPH # 0.9 10*3/uL (1.3-4.4); LYMPH % 5.9 % (27.0-41.0); MEAN CELL VOLUME 99.3 fl (81.0-99.0); MEAN CORPUSCULAR HGB 29.7 pg (27.0-31.0); MEAN CORPUSCULAR HGB CONC 29.9 g/dl (33.0-37.0); MONO % 6.1 % (3.0-9.0); NEUT # 13.6 10*3/uL (2.3-7.9); PLATELET COUNT AUTOMATED 198 10*3/uL (130-400); RED CELL DISTRI WIDTH 13.2 % (0-14.5); WHITE BLOOD COUNT 15.8 10*3/uL (4.8-10.8)
[2022-09-14 08:00] VITALS: BP 106/32
[2022-09-14 12:00] VITALS: BP 108/38
[2022-09-14 16:00] VITALS: BP 112/47
[2022-09-14 20:00] VITALS: BP 107/31
[2022-09-15] VITALS: BP 109/35
[2022-09-15 04:13] VITALS: BP 114/42
[2022-09-15 04:21] LABS: BASO # 0.1 10*3/uL (0.0-0.1); BASO % 0.5 % (0.0-1.0); EOS # 0.4 10*3/uL (0.0-0.4); EOS % 3.6 % (1.0-4.0); HEMATOCRIT 29.2 % (37.0-47.0); MEAN CELL VOLUME 100.3 fl (81.0-99.0); MEAN CORPUSCULAR HGB 29.9 pg (27.0-31.0); MEAN CORPUSCULAR HGB CONC 29.8 g/dl (33.0-37.0); MEAN PLATELET VOLUME 10.9 fl (9.6-12.3); MONO # 1.1 10*3/uL (0.1-1.0); MONO % 10.6 % (3.0-9.0); NEUT # 7.6 10*3/uL (2.3-7.9); NEUT % 74.8 % (47.0-73.0); PLATELET COUNT AUTOMATED 181 10*3/uL (130-400); RED BLOOD COUNT 2.91 10*6/uL (4.10-5.10); RED CELL DISTRI WIDTH 13.3 % (0-14.5); WHITE BLOOD COUNT 10.2 10*3/uL (4.8-10.8)
[2022-09-15 04:44] LABS: POTASSIUM 3.9 mmol/L (3.4-5.1); TOTAL PROTEIN 5.8 gm/dL (6.0-8.0)
[2022-09-15 08:00] VITALS: BP 133/49
[2022-09-15 12:00] VITALS: BP 130/36
[2022-09-15 16:00] VITALS: BP 134/35
[2022-09-15 20:00] VITALS: BP 133/32
[2022-09-16] VITALS: BP 129/44
[2022-09-16 06:30] LABS: BASO # 0.1 10*3/uL (0.0-0.1); BASO % 0.6 % (0.0-1.0); EOS # 0.3 10*3/uL (0.0-0.4); HEMATOCRIT 31.1 % (37.0-47.0); LYMPH # 0.9 10*3/uL (1.3-4.4); LYMPH % 10.8 % (27.0-41.0); MEAN CORPUSCULAR HGB 29.3 pg (27.0-31.0); MEAN CORPUSCULAR HGB CONC 29.6 g/dl (33.0-37.0); MEAN PLATELET VOLUME 10.8 fl (9.6-12.3); MONO % 11.4 % (3.0-9.0); NEUT # 6.3 10*3/uL (2.3-7.9); NEUT % 73.3 % (47.0-73.0); PLATELET COUNT AUTOMATED 232 10*3/uL (130-400); RED BLOOD COUNT 3.14 10*6/uL (4.10-5.10); RED CELL DISTRI WIDTH 13.1 % (0-14.5); WHITE BLOOD COUNT 8.6 10*3/uL (4.8-10.8)
[2022-09-16 07:13] LABS: POTASSIUM 4.1 mmol/L (3.4-5.1)
[2022-09-16 08:00] VITALS: BP 131/46
[2022-09-16 12:00] VITALS: BP 142/42
[2022-09-16 16:00] VITALS: BP 140/49
[2022-09-16 20:00] VITALS: BP 113/54
[2022-09-17] VITALS: BP 143/50
[2022-09-17 08:00] VITALS: BP 142/50
[2022-09-17 12:00] VITALS: BP 138/52
[2022-09-17 16:00] VITALS: BP 147/57
[2022-09-17 20:00] VITALS: BP 145/48
[2022-09-18] VITALS: BP 132/46
[2022-09-18 06:28] LABS: POTASSIUM 4.4 mmol/L (3.4-5.1)
[2022-09-18 08:00] VITALS: BP 157/62
[2022-09-18 12:00] VITALS: BP 141/56
[2022-09-18 16:00] VITALS: BP 134/54; BP 141/46
[2022-09-18 20:00] VITALS: BP 141/50
[2022-09-19] VITALS: BP 128/48
[2022-09-19 07:09] LABS: POTASSIUM 4.2 mmol/L (3.4-5.1)
[2022-09-19 08:00] VITALS: BP 152/51
[2022-09-19 12:00] VITALS: BP 148/47
[2022-09-19] MEDS ORDERED: OMNICEF300 MG PO (12:59)
== END 2022-09-19 14:04 | disposition home or self-care (01) | DRG 871 ==
LOC: ED 15:12 → EDHOLD 19:17 → ICCU 19:17 → 5E 09-16 14:59
PROVIDERS: Emergency Medicine; Family Medicine; Internal Medicine; Internal Medicine Nephrology; Nurse Practitioner Family; Occupational Therapist; Student in an Organized Health Care Education/Training Program; ADMIT Student in an Organized Health Care Education/Training Program; ATTEND Student in an Organized Health Care Education/Training Program
PROC: 5A09357 Assistance with Respiratory Ventilation, Less than 24 Consecutive Hours, Continuous Positive Airway Pressure (ICD-10-PCS; principal; 2022-09-14)
DX: A41.59 Other Gram-negative sepsis (principal); I21.A1 Myocardial infarction type 2; J18.9 Pneumonia, unspecified organism; N17.0 Acute kidney failure with tubular necrosis; I50.33 Acute on chronic diastolic (congestive) heart failure; J96.21 Acute and chronic respiratory failure with hypoxia; J96.22 Acute and chronic respiratory failure with hypercapnia; E44.0 Moderate protein-calorie malnutrition; N18.4 Chronic kidney disease, stage 4 (severe); E87.4 Mixed disorder of acid-base balance; N12 Tubulo-interstitial nephritis, not specified as acute or chronic; Z68.42 Body mass index [BMI] 45.0-49.9, adult; D53.9 Nutritional anemia, unspecified; R65.20 Severe sepsis without septic shock; R31.9 Hematuria, unspecified; E66.01 Morbid (severe) obesity due to excess calories; R74.01 Elevation of levels of liver transaminase levels; E03.9 Hypothyroidism, unspecified; I34.0 Nonrheumatic mitral (valve) insufficiency; Z88.1 Allergy status to other antibiotic agents; Z79.82 Long term (current) use of aspirin; Z79.899 Other long term (current) drug therapy; Z86.711 Personal history of pulmonary embolism; Z90.710 Acquired absence of both cervix and uterus; Z90.49 Acquired absence of other specified parts of digestive tract; Z95.5 Presence of coronary angioplasty implant and graft

== ENCOUNTER → 2022-10-08 | Outpatient (CLI) | payer MEDICARE ==
[~2022-10-08] MED LIST changes: +HYDROCODONE-AC1 EAC1 PO; +LEVOTHYROXINE175 MCG PO; +OMNICEF300 MG PO; +RENAFOOD PO
== END | disposition home or self-care (01) ==
LOC: ORTHO 10-07 11:32
PROVIDERS: ATTEND Orthopaedic Surgery
DX: S82.842D Displaced bimalleolar fracture of left lower leg, subsequent encounter for closed fracture with routine healing (principal); M85.862 Other specified disorders of bone density and structure, left lower leg; M79.89 Other specified soft tissue disorders; X58.XXXD Exposure to other specified factors, subsequent encounter

== ENCOUNTER 2023-03-15 16:21 | Emergency (ER) | payer MEDICARE ==
[~2023-03-15] VITALS: Wt 102.3 kg
[~2023-03-15 16:21] MED LIST changes: +CARVEDILOL12.5 MG PO; +CARVEDILOL25 MG PO; +COLACE100 MG PO; +ELIQUIS5 M1 PO; +Glimepiride1 MG PO; +HYDRALAZINE10 MG PO; +HYDROXYZINE PAM25 M1 PO; +Humalog SQ; +IMDUR SA30 MG PO; +Ipratropium Brom3 ML INH; +JANUVIA25 MG PO; +K-TAB20 MEQ PO; +LASIX20 MG PO; +MELATONIN3 MG PO; +METAMUCIL FIBE3.4 GM PO; +MOM30 M1 PO; +NYST SUSP PO; +OCUVITE PO; +ONDANSETRON HYDR4 M1 PO; +PREDNISONE10 MG PO; +SYNTHROID,LEV175 MCG PO; +TRAZODONE50 MG PO; +TYLENOL325 M1 PO; +ZYVOX600 MG PO; +Zetia PO; +[UNRECOGNIZED DRUG - OTHER] PO
[2023-03-15 16:24] VITALS: BP 141/44
[2023-03-15] MEDS ORDERED: MIRTAZAPINE7.5 MG PO (16:51)
[2023-03-15 16:52] LABS: BASO # 0.1 10*3/uL (0.0-0.1); BASO % 0.9 % (0.0-1.0); EOS # 0.3 10*3/uL (0.0-0.4); HEMATOCRIT 39.4 % (37.0-47.0); LYMPH % 14.2 % (27.0-41.0); MEAN CORPUSCULAR HGB 30.3 pg (27.0-31.0); MEAN CORPUSCULAR HGB CONC 31.2 g/dl (33.0-37.0); MEAN PLATELET VOLUME 9.6 fl (9.6-12.3); MONO % 14.1 % (3.0-9.0); NEUT # 4.7 10*3/uL (2.3-7.9); NEUT % 66.4 % (47.0-73.0); PLATELET COUNT AUTOMATED 312 10*3/uL (130-400); RED BLOOD COUNT 4.06 10*6/uL (4.10-5.10); RED CELL DISTRI WIDTH 12.6 % (0-14.5)
[2023-03-15 17:03] LABS: ACT PARTIAL THROMBO TIME 34.1 SECONDS (20.0-32.1)
[2023-03-15 17:10] LABS: POTASSIUM 4.2 mmol/L (3.4-5.1); TOTAL PROTEIN 7.3 gm/dL (6.0-8.0)
[2023-03-15 17:40] LABS: BILIRUBIN Negative (Negative); BLOOD 1+ (Negative); CLARITY Turbid (Clear); COLOR Yellow (Yellow); GLUCOSE Negative (Negative); KETONE Negative (Negative); LEUKO ESTERASE 3+ (Negative); NITRITE Positive (Negative); PH 6.5 (4.5-8.0); UROBILINOGEN 0.2 E.U./dl (0.0-1.0)
[2023-03-15 17:47] LABS: BACTERIA 4+; WBC TNTC wbc/hpf (0-5)
[2023-03-15] MEDS ORDERED: VIBRAMYCIN100 MG PO (18:51)
[2023-03-15] MEDS ORDERED: FLOMAX0.4 MG PO (18:51)
== END 2023-03-15 19:17 | disposition short-term general hospital (02) ==
LOC: ED 16:21
PROVIDERS: Internal Medicine
DX: N20.0 Calculus of kidney (principal); J18.9 Pneumonia, unspecified organism; R11.2 Nausea with vomiting, unspecified; E11.22 Type 2 diabetes mellitus with diabetic chronic kidney disease; I13.0 Hypertensive heart and chronic kidney disease with heart failure and stage 1 through stage 4 chronic kidney disease, or unspecified chronic kidney disease; N18.9 Chronic kidney disease, unspecified; J45.909 Unspecified asthma, uncomplicated; F41.9 Anxiety disorder, unspecified; E03.9 Hypothyroidism, unspecified; I25.10 Atherosclerotic heart disease of native coronary artery without angina pectoris; I50.9 Heart failure, unspecified; J44.9 Chronic obstructive pulmonary disease, unspecified; Z90.12 Acquired absence of left breast and nipple; Z88.1 Allergy status to other antibiotic agents; Z88.8 Allergy status to other drugs, medicaments and biological substances; Z90.49 Acquired absence of other specified parts of digestive tract; Z90.710 Acquired absence of both cervix and uterus; Z98.890 Other specified postprocedural states; Z95.5 Presence of coronary angioplasty implant and graft